=== PATIENT | female | born 1990 | race Two or more races ===

== ENCOUNTER → 2017-09-29 10:30 | Outpatient (CLI) | payer MEDICAID, SELFPAY ==
[2017-09-29 13:23] LABS: M R Staph aureus DNA By PCR Negative (Negative); Probe Check PASS; Specimen Processing Control PASS; Staph aureus DNA By PCR NEGATIVE (Negative)
== END ==
PROVIDERS: Visit Provider Ophthalmology
DX: H00.032 Abscess of right lower eyelid (principal)
CPT/HCPCS: 87070; 87075; 87077; 87186; 87205; 87640

== ENCOUNTER 2018-02-20 19:20 | Inpatient (IN) | payer MEDICAID, SELFPAY ==
[2018-02-20 17:48] VITALS: BMI 30.1
[2018-02-20] MEDS: Lactated Ringers 1,000 ML 50 ML IV ×3 (19:40→23:15)
[2018-02-20 19:51] LABS: Hematocrit 36.1 % (37-47); Hemoglobin 11.9 g/dl (12.0-15.0); Mean Corpuscular Hgb 31.7 pg (27.0-32.0); Mean Corpuscular Volume 96.3 fL (81-99); Mean Platelet Vol. 10.5 fl (6.2-12.0); Platelet Count 279 K/mm3 (150-450); RBC Distribution Width CV 13.6 % (11.6-14.6); RBC Distribution Width SD 47.1 fl (35.1-43.9); Red Blood Count 3.75 M/mm3 (4.2-5.4); Scan Indicated on CBC? Y/N NO; White Blood Count 8.7 K/mm3 (4.4-11.0)
--- NOTE | 2018-02-20 20:11 | PCM.HP.OB ---
- Problem List (1) Active labor at term Status: Acute History Date of Admission: 02/20/18 Final NAYE: 02/21/18 Gestational age: 39 Weeks and 6 Days History of this : This is a 28 year-old, G2, P1001, at 39 weeks gestational age who presented with contractions. She was 1.5 cm last week. Today she was 4 cm, and then changed to 5 cm dilated. Mio every 2-4 min. No VB, LOF. Good FM. Otherwise feeling well. Medical History: Medical History (Last Updated 02/20/18 @ 20:14 by Jocelin Cuellar DO) History of drug use Z87.898 Tobacco use Z72.0 Chronic hepatitis K73.9 Surgical History: Surgical History (Last Updated 02/20/18 @ 20:14 by Jocelin Cuellar DO) History of delivery Z98.891 Allergies No Known Allergies Allergy (Verified 02/20/18 17:50) Home Medications: Home Medications Vits96/Iron Fum/Folic [ Tablet] 1 tab PO DAILY 02/19/18 Smoking Status: Current every day smoker Alcohol: None Number of Fetus(es): 1 Heart Tracin/mod olivia/+accels/no decels TOCO Analysis: ctx's q 2-4 min History Past Pregnancies: Past Pregnancies Delivery Date Name GA/Weeks Outcome Route Weight Infant Gender Labor Length Anesthesia Delivery Location Provider FOB 41w2d for NRFHT PLTCS Labs: LFT's 71/76, HepC quant 199,600 GBS neg 1 hr GTT 90, sequential screen neg, Rh pos, syphilis NR, RI, HepB neg, HIV NR, GC/CT neg Expected Infant Delivery Method: Review of Systems Gynecological: Reports: - - +Ctx's. No vb, lof. Good FM Physical Exam General: No apparent distress HEENT: Atraumatic Lungs: - - No increased resp effort Abdomen: Soft, Non Tender, Gravid Extremities:: No edema Neurological: Neuro grossly intact VESSEL SCRAPPER: Normal external genitalia Estimated gestational size: Appropriate for gestational size Presentation: Cephalic Cervix Dilation (cm): 4 - when checked in the office Station: -2 Effacement (%): 80 Assessment/Plan All Active Problems Active labor at term (Acute) This is a 28 year-old, G2, P1001, at 39 weeks gestational age who presents in active labor. Hx of prior for NRFHT. Discussed risks of a TOLAC including uterine rupture, hemorrhage, maternal , compromise and . Patient understands the risks of a TOLAC and desires to proceed with TOLAC, consent has been signed. - GBS negative - H/o chronic hepatitis C: No internal monitors. Will check LFT's and refer to GI as an outpatient - H/o drug use: In remission. Has been going to AA meetings. Negative UDS's in . UDS on admission - Continue to monitor active labor. Pt getting epidural. Pt is aware of possible need for emergent
[2018-02-20 20:40] LABS: Amphetamine Urine VISTA NEGATIVE (<1000 ng/mL); Barbiturate Urine VISTA NEGATIVE (< 200 ng/mL); Benzodiazepine Urine VISTA NEGATIVE (< 200 ng/mL); Cocaine Urine VISTA NEGATIVE (< 300 ng/mL); Ecstacy Urine VISTA NEGATIVE (< 500 ng/mL); Methadone Urine VISTA NEGATIVE (< 300 ng/mL); PCP Urine VISTA NEGATIVE (< 25 ng/mL); THC Urine VISTA NEGATIVE (< 50 ng/mL); Vista UDS pH Range 6
[2018-02-20] MEDS: fentaNYL-bupivacaine (epidural) 100 ML BAG EPIDURAL (20:55)
[2018-02-21] MEDS: Oxytocin 30 units/NS 500 ml 30 UNITS/500 ML IV.SOLN 334 UNITS IV (03:40)
--- NOTE | 2018-02-21 04:07 | PCM.OB.VAG ---
- Problem List (1) Active labor at term Status: Acute (2) Hepatitis C Status: Acute (3) History of drug abuse in remission Status: Acute (4) History of section Status: Acute Vaginal Delivery Maternal Presentation: Active Labor Amniotic Membrane Rupture Type: Artificial Amniotic Fluid Description: Clear Final NAYE: 02/21/18 Gestational age: 40 Weeks and 0 Days Date of Procedure: 02/21/18 Pre-Operative Diagnosis: Active labor at 39 wks gestation, TOLAC, Hx of prior section Post-Operative Diagnosis: As above Surgery/ Procedure Performed: Spontaneous Vaginal Delivery Type of Anesthesia: Epidural Description of Procedure: Patient complete. AROM for clear fluid. Cvx 10/100/+2. Patient pushing and with pushing variable decelerations noted. Patient continued to make good progress with pushing. Midline episiotomy created. Head delivered OA without difficulty. Shoulders and body of delivered without force or delay. VFI placed on maternal abdomen. Cord clamped and cut by FOB after 60 sec delay. Cord gases and cord blood obtained. Placenta delivered intact with fundal massage, calcifications noted on placenta, 3V cord. Fundus firm and bleeding hemostatic. 2nd degree perineal laceration repaired in usual fashion with 3-0 Vicryl. 2 small hemostatic abrasions noted along left labia minora and midline near clitoral rhoades. EBL 250 cc. Presentation: Vertex Placental Delivery Description: Expressed Cord Vessel Description: 3 Vessels Cord Gases drawn per routine: ABG, VBG Cord Entanglement: None Drain: Liriano to straight drain Estimated Blood Loss: 250 Infant A gender: Female Episiotomy Description: Midline Laceration: 2nd degree Medications given after delivery: IV Pitocin Complications: None Baby B - Information Amniotic Membrane Rupture Type: Artificial Presentation: Vertex - Operative Information Cord Entanglement: None Cord Vessel Description: 3 Vessels Infant B gender: Female
[2018-02-21] MEDS: Oxytocin 30 units/NS 500 ml 30 UNITS/500 ML IV.SOLN 167 UNITS IV (04:10)
--- NOTE | 2018-02-21 04:14 | OP.PCM_ITS ---
- Problem List (1) Active labor at term Status: Acute (2) Hepatitis C Status: Acute (3) History of drug abuse in remission Status: Acute (4) History of section Status: Acute Vaginal Delivery Maternal Presentation: Active Labor Amniotic Membrane Rupture Type: Artificial Amniotic Fluid Description: Clear Final NAYE: 02/21/18 Gestational age: 40 Weeks and 0 Days Date of Procedure: 02/21/18 Pre-Operative Diagnosis: Active labor at 39 wks gestation, TOLAC, Hx of prior section Post-Operative Diagnosis: As above Surgery/ Procedure Performed: Spontaneous Vaginal Delivery Type of Anesthesia: Epidural Description of Procedure: Patient complete. AROM for clear fluid. Cvx 10/100/+2. Patient pushing and with pushing variable decelerations noted. Patient continued to make good progress with pushing. Midline episiotomy created. Head delivered OA without difficulty. Shoulders and body of delivered without force or delay. VFI placed on maternal abdomen. Cord clamped and cut by FOB after 60 sec delay. Cord gases and cord blood obtained. Placenta delivered intact with fundal massage, calcific ations noted on placenta, 3V cord. Fundus firm and bleeding hemostatic. 2nd degree perineal laceration repaired in usual fashion with 3-0 Vicryl. 2 small hemostatic abrasions noted along left labia minora and midline near clitoral rhoades. EBL 250 cc. Presentation: Vertex Placental Delivery Description: Expressed Cord Vessel Description: 3 Vessels Cord Gases drawn per routine: ABG, VBG Cord Entanglement: None Drain: Liriano to straight drain Estimated Blood Loss: 250 A gender: Female Episiotomy Description: Midline Laceration: 2nd degree Medications given after delivery: IV Pitocin Complications: None Baby B - Information Amniotic Membrane Rupture Type: Artificial Presentation: Vertex - Operative Information Cord Entanglement: None Cord Vessel Description: 3 Vessels Infant B gender: Female
[2018-02-21 08:30] VITALS: BP 108/54; PULSE 100; RESP 20; TEMP 37.2; O2SAT 95
[2018-02-21] MEDS: Senna/Docusate Sodium 1 Tablet PO (08:55)
[2018-02-21] MEDS: Prenatal Vits Tablet 1 TABLET PO (08:57)
[2018-02-21] MEDS: Ibuprofen 600 MG Tablet PO ×2 (08:58→16:23)
[2018-02-21] MEDS: Acetaminophen 500 MG Tablet 1000 MG PO ×2 (10:55→20:55)
[2018-02-21 12:00] VITALS: BP 99/53; PULSE 89; RESP 18; TEMP 37; O2SAT 96
--- NOTE | 2018-02-21 13:04 | NURSING ---
daryl area checked again and appears intact with no drainage. Pt states still sore but better since pain meds and tucks pads provided.
[2018-02-21 16:00] VITALS: BP 103/58; PULSE 93; RESP 14; TEMP 36.9; O2SAT 96
--- NOTE | 2018-02-21 17:53 | NURSING ---
pt given kpad for back pain
--- NOTE | 2018-02-21 18:58 | NURSING ---
baby sleeping. mom encouraged to undress baby to wake up for feeding
[2018-02-21 20:50] VITALS: BP 111/62; PULSE 87; RESP 16; TEMP 36.9; O2SAT 95
[2018-02-22 01:00] VITALS: BP 92/47; PULSE 77; RESP 16; TEMP 36.8; O2SAT 97
[2018-02-22 04:55] VITALS: BP 95/53; PULSE 97; RESP 16; TEMP 36.7; O2SAT 97
[2018-02-22] MEDS: Prenatal Vits Tablet 1 TABLET PO (08:25)
[2018-02-22] MEDS: Acetaminophen 500 MG Tablet 1000 MG PO (08:25)
[2018-02-22] MEDS: Senna/Docusate Sodium 1 Tablet PO (08:28)
--- NOTE | 2018-02-22 08:49 | PCM.PN.OB ---
Patient Problems: Active and Suspected Problems (Last Updated 02/20/18 @ 20:14 by Jocelin Cuellra DO) Active labor at term (Acute) Hepatitis C (Acute) History of drug abuse in remission (Acute) History of section (Acute) Subjective: Patient is doing well. Ambulating is spontaneously voiding without difficulty. +BM. Pain is well controlled. Tolerating regular diet without nausea or vomiting. Denies lightheadedness, dizziness, chest pain, shortness of breath, leg pain. Lochia is decreasing. She is breast-feeding without difficulty and without breast complaints. - Physical Exam General: Alert, Oriented x3 HEENT: Atraumatic Lungs: - - No increased resp effort Abdomen: Soft, Non-Distended, - - ATTP, FF@U-1 Extremities: No edema, No Calf Tenderness Skin: No rashes Neurological: Neuro grossly intact Psych/Mental Status: Normal Affect, Appropriate Vital Signs Temp Pulse Resp BP Pulse Ox 98.1 F 97 16 95/53 L 97 02/22/18 04:55 02/22/18 04:55 02/22/18 04:55 02/22/18 04:55 02/22/18 04:55 Oxygen Delivery Method Room Air Weight: 204 lb Body Mass Index (BMI) 30.1 Intake and Output for Last 24 Hours 02/20/18 02/21/18 02/22/18 23:59 23:59 23:59 Output Total 975 / 975 Balance -975 / -975 Medical Necessity - Tobacco Use Smoking Status: Current every day smoker Assessment/Plan All Active Problems (Last Updated 02/20/18 @ 20:14 by Jocelin Cuellar DO) Active labor at term (Acute) Hepatitis C (Acute) History of drug abuse in remission (Acute) History of section (Acute) Pt is day#1 from . - She feels well and ready to go home - AF, VSS - - PPBC: Plans for Mirena at 8 wks - Dispo: D/c home. Reviewed discharge instructions
--- NOTE | 2018-02-22 08:59 | PCM.DCVAG ---
Discharge Diet: No Restrictions Discharge Activity: Return to Normal Activity May resume sexual activity in: 4-6 weeks Weight Bearing Status: Weight bearing as tolerated Lifting Restrictions: None Call your doctor if you observe: Fever of 101 or Higher, Inability to urinate, Inability to have a bowel movement, Using more than one pad per hour, Shortness of breath, Dizziness, Chest pain, Increased palpitations (irregular heartbeat), Calf discomfort, Uncontrolled pain Instructions: How to Breastfeed, After a Vaginal Additional Instructions: If you experience any of the following, contact your healthcare provider. Bleeding that soaks a pad every hour for 2 hours Fever 100.4 or higher Unrelieved incision or abdominal pain Swelling, redness, discharge or bleeding from your incision or episiotomy site Your incision begins to separate Problems urinating (including inability to urinate or burning while urinating). Visual changes Severe headache Flu-like symptoms Pain or redness in one of both of your breasts Pain, warmth, tenderness or swelling in your legs, especially the calf area Frequent nausea and vomiting Symptoms of depression or anxiety If you experience any of the following, call 911 or go to the nearest Emergency Room. Chest pain Problems breathing Seizure activity Partial or complete paralysis of a body part, slurred speech, weakness or drooping of the face, or a sudden inability to walk or hold your balance Allergies/Adverse Reactions: Allergies No Known Allergies Allergy (Verified 02/20/18 17:50) Medications to take at Discharge Vits96/Iron Fum/Folic [ Tablet] 1 tab PO DAILY 02/19/18 Please Follow Up With: Jocelin Cuellar DO When: 4-6 weeks for visit. Call in 2 weeks for a sooner appointment if you would like to be seen. Primary Care Physician: Meg Farr [Primary Care Provider] - Test Results: Test results from this visit will be discussed in further detail at your follow-up appointment, if applicable.
--- NOTE | 2018-02-22 09:02 | DCINST_ITS ---
Discharge Diet: No Restrictions Discharge Activity: Return to Normal Activity May resume sexual activity in: 4-6 weeks Weight Bearing Status: Weight bearing as tolerated Lifting Restrictions: None Call your doctor if you observe: Fever of 101 or Higher, Inability to urinate, Inability to have a bowel movement, Using more than one pad per hour, Shortness of breath, Dizziness, Chest pain, Increased palpitations (irregular heartbeat), Calf discomfort, Uncontrolled pain Instructions: How to Breastfeed, After a Vaginal Additional Instructions: If you experience any of the following, contact your healthcare provider. * Bleeding that soaks a pad every hour for 2 hours * Fever 100.4 or higher * Unrelieved incision or abdominal pain * Swelling, redness, discharge or bleeding from your incision or episiotomy site * Your incision begins to separate * Problems urinating (including inability to urinate or burning while urinating). * Visual changes * Severe headache * Flu-like symptoms * Pain or redness in one of both of your breasts * Pain, warmth, tenderness or swelling in your legs, especially the calf area * Frequent nausea and vomiting * Symptoms of depression or anxiety If you experience any of the following, call 911 or go to the nearest Emergency Room. * Chest pain * Problems breathing * Seizure activity * Partial or complete paralysis of a body part, slurred speech, weakness or drooping of the face, or a sudden inability to walk or hold your balance Allergies/Adverse Reactions: Allergies No Known Allergies Allergy (Verified 02/20/18 17:50) Medications to take at Discharge Vits96/Iron Fum/Folic [ Tablet] 1 tab PO DAILY 02/19/18 Please Follow Up With: Jocelin Cuellar DO When: 4-6 weeks for visit. Call in 2 weeks for a sooner appointment if you would like to be seen. Primary Care Physician: Meg Farr [Primary Care Provider] - Test Results: Test results from this visit will be discussed in further detail at your follow- up appointment, if applicable.
[2018-02-22 10:00] VITALS: BP 109/64; PULSE 88; RESP 16; TEMP 36.6; O2SAT 97
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
[2018-02-22 16:50] VITALS: BP 108/62; PULSE 83; RESP 14; TEMP 36.6; O2SAT 96
--- NOTE | 2018-03-01 10:01 | CASEMGMT ---
Social Work Labor and Delivery Early Head Start referral made, faxed to [facility], to confirmed fax at [phone]. No other services requested or indicated. -BRUCE Arauz, DIETIST
--- OUTSIDE RECORDS SUMMARY | 2018-04-18 03:17 | XMS RPT_ITS ---
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 grossly non-focal PELVIS: External genitalia normal without lesions. Perineal body intact. No vaginal or cervical lesions. Cervix closed. Uterus 8 week size. No adnexal masses or tenderness. Clinical Pelvimetry: Pelvimetry clinically assessed as adequate Limited OB ultrasound exam: single intrauterine and positive cardiac activity ASSESSMENT: 27 year old at 7.6 wks gestational age PLAN: 1) Patient oriented to practice. Discussed nutrition, folic acid supplementation, dietary guidelines, exercise, smoking, alcohol, caffeine, and drug use. Discussed routine OB labs including STD/HIV. Discussed aneuploidy screening options including serum screening and nuchal translucency. 2) History of cesearan section, patient counseled on trial of labor versus repeat cesearan section, patient plans TOLAC 3) HEP C +, quant and lft ordered Follow up in 4 weeks or sooner prn. Spenser Corado MD SBIRT Brayan Crespo was given the 4's screening tool. Brayan answered as follows: OB Opioid Screening - Last Recorded (since 10/14/2016) Did any of your parents have a problem with alcohol or other drug use? No Does your partner have a problem with alcohol or other drug use? (!) Yes (partner overdosed on heroin went to rehab and has sponser ) In the past, have you had difficulties in your life because of alcohol or other drugs, including prescription medications? 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 No Are you taking medication for pain during the either prescribed or not? No Based on the screen and further questions, she is considered at moderate risk due to: High use in the past including recent treatment. sober x 2 years Patient offered plan rescreen early third trimester. In discussing this issue my medical advice was that Brayan Crespo abstain and continue with outpatient treatment. Her readiness to change(0 lowest - 10 highest) was 10. We discusssed her motivation to change based upon this response. Patient agreed that she would: abstain and participate in a 12 step program (continue participation) In total, 10 minutes of personal time was spent administering and interpreting the screen, plus performing a brief intervention. Patient is very Motivated to stay sober- has sponsor, attends meetings. Spenser Corado MD ALLERGIES ALLERGIES DATE TYPE / CODE NAME / CODE REACTION SEVERITY SOURCE 02/20/2018 Drug No Known Unknown [facility] Allergy/416 Allergies/F28316 [facility] 868147(SNOM 0388(RXNORM) Repository ED CT) 07/11/2017 DRUG/713463 DEXTROMETHORPHAN UNKNOWN [facility] 003(SNOMED -GUAIFENESIN [place]) Repository 04/17/2016 Drug Penicillins/F001 Unknown Unknown [facility] Allergy/416 162944(RXNORM) Hospital 594127(SNOM Repository ED CT) Drug NO KNOWN [facility] Class/25308 ALLERGIES [place] 1003(SNOMED Repository CT) ENCOUNTERS ENCOUNTERS ADMIT/DISCHARGE ACCOUNT ADMITTING ENCOUNTER LOCATION SOURCE NUMBER CLASS 03/12/2018/03/12/20 [id number] Ambulatory [address] Repository 03/06/2018/03/07/20 [id number] Ambulatory [address] Repository 02/21/2018 [id number] Chau Cuellar Ambulatory [facility] ing:WP Repository 02/20/2018/02/23/20 [id number] Chau Cuellar Inpatient [place] ing:WPRoom: Repository [id number]: 1 02/20/2018/02/22/20 [id number] Ambulatory [facility] [place] Repository 02/19/2018/02/21/20 [id number] Amb[facility] [place] Repository 02/15/2018/02/19/20 [id number] Amb[facility] [place] Repository 02/08/2018/02/12/20 [id number] Ambulatory [facility] [place] Repository 02/01/2018/02/05/20 [id number] Ambulatory [facility] [place] Repository 01/25/2018/01/26/20 [id number] Amb[facility] [place] Repository 01/25/2018/01/29/20 [id number] Ambulatory [facility] [place] Repository 01/18/2018/01/22/20 [id number] Amb[facility] [place] Repository 01/04/2018/01/08/20 [id number] Amb[facility] [place] Repository 12/21/2017/12/25/19 [id number] Amb[facility] [place] Repository 12/12/2017/12/14/19 [id number] Amb[facility] [place] Repository 11/23/2017/11/24/19 [id number] Amb[facility] [place] Repository 11/23/2017/11/28/19 [id number] Ambulatory [facility] [place] Repository 10/26/2017/10/30/19 [id number] Amb[facility] [place] Repository 09/29/2017 [id number] Ambulatory [facility] ing:LABSPEC Repository 09/27/2017/09/29/19 [id number] Ambulatory [facility] [place] Repository 09/27/2017/10/02/19 [id number] Ambulatory [facility] [place] Repository 09/25/2017/09/28/19 [id number] Ambulatory [facility] [place] Repository 09/12/2017/09/13/19 [id number] Ambulatory [facility] [place] Repository 09/12/2017/09/15/19 [id number] Amb[facility] [place] Repository 08/21/2017/08/23/19 [id number] Ambulatory [address] Repository 08/08/2017/08/09/19 [id number] Ambulatory [address] Repository 08/08/2017 [id number] Ambulatory [facility] Repository 08/08/2017 [id number] Ambulatory [facility] Repository 07/11/2017/07/17/19 [id number] Ambulatory [address] Repository PAYERS PAYERS ENCOUNTER GUARANTOR PAYER SUBSCRIBER SOURCE 02/21/2018 BRAYAN L Primary BRAYAN [place] [id number] [id number] [address]Qky: Number: Repository [id number] (HP) Date:[id number] [address] [address]XZ: 02/21/2018 Secondary NOT GIVENUNK [place] Insurance:SELF PAY [facility] Number: Effective Repository Date:2018-02-15 02/20/2018 BRAYAN L Primary BRAYAN [place] [id number] Insurance:[facility]: [facility] [id number] [address]Wnf: Number: Repository [id number] (HP) Date:[id number] [address] [address]LP: 02/20/2018 Secondary NOT GIVENUNK [place] Insurance:SELF PAY [facility] Number: Effective Repository Date:2018-02-20 09/29/2017 Brayan Primary Brayan [place] [id number] Insurance:[facility]: [facility] [id number] [facility] [address]Uuc: Number: Repository [id number] (HP) Date:[id number] [address] [address]WR: 09/29/2017 Secondary NOT GIVENUNK [place] Insurance:[facility]LF [facility]Y [facility] Number: Effective Repository Date:2017-09-29
== END 2018-02-22 16:55 | disposition home or self-care (01) | DRG 560 ==
LOC: WPOUT 19:24
PROVIDERS: Admitting Provider Obstetrics & Gynecology; Referring Provider Obstetrics & Gynecology; Visit Provider Obstetrics & Gynecology
PROC: 10E0XZZ Delivery of Products of Conception, External Approach (ICD-10-PCS; CPT 59514; principal; 2018-02-21 07:15)
DX: O70.1 Second degree perineal laceration during delivery (principal); O76 Abnormality in fetal heart rate and rhythm complicating labor and delivery; O34.219 Maternal care for unspecified type scar from previous cesarean delivery; O98.42 Viral hepatitis complicating childbirth; O99.334 Smoking (tobacco) complicating childbirth; F17.200 Nicotine dependence, unspecified, uncomplicated; B18.2 Chronic viral hepatitis C; Z37.0 Single live birth; Z3A.39 39 weeks gestation of pregnancy; Z87.898 Personal history of other specified conditions
CPT/HCPCS: 59050; 80307; 85027; 86850; 86900; 99218; J7120; G0378

== ENCOUNTER 2018-05-08 15:32 | Emergency (ER) | payer MEDICAID, SELFPAY ==
[2018-05-08 15:33] VITALS: BP 134/75; PULSE 127; RESP 18; TEMP 39.4; O2SAT 91; BMI 26.9
[2018-05-08 15:36] VITALS: BP 134/75; PULSE 135; RESP 18; TEMP 39.4; O2SAT 100
--- NOTE | 2018-05-08 16:29 | RAD_ITS ---
STUDY: X-RAY CHEST REASON FOR EXAM: Female, 28 years old. Fever TECHNIQUE: PA and lateral views of the chest. COMPARISON: None. FINDINGS: prosthetic makeup designer leads are present. There is a prominent bronchopulmonary marking pattern of the left lingula. There is no demonstrated pleural abnormality. Normal size heart. Normal mediastinum and rafael. Normal visualized pulmonary arteries. Normal visualized aortic arch and descending thoracic aorta. Normal visualized thoracic spine. Normal visualized ribs, clavicles, and shoulders. There is no demonstrated abnormality of the visualized soft tissue structures of the upper abdomen. RAD/Chest PA and Lateral IMPRESSION: Prominent bronchopulmonary marking pattern of the left lingula suggestive of pneumonitis versus early infiltrate. Electronically Signed: Daniel Husain MD at 17:35 EST , Service support ,
--- NOTE | 2018-05-08 16:30 | ED.VISSUMM ---
- ER Visit Summary Date of Service: 05/08/18 Chief Complaint: Fever History of Present Illness: The patient is a 28 F who presents for 6 days of respiratory symptoms, now with fever. Patient states 6 days ago she began having a itching in her throat. This progressed to a cough, congestion and sore throat. She was seen by urgent care 3 days ago and states they did a strep test and a chest x-ray which were unremarkable. This morning the patient was feeling somewhat better, but then at lunchtime she abruptly developed body aches and chills. She took her temperature at home which was 102.4. She still is having a significant cough with some posttussive emesis. Patient has a 2-month-old infant whom she breast-feeds. Patient is hepatitis C positive. She does smoke tobacco. Physical Examination: Vital signs: Febrile at 102.9, tachycardic at 116, normotensive, no hypoxia on room air General: well nourished, well developed, in no distress Skin: warm, dry, flushed, no rash, no pallor, no petechiae or purpura, no vesicles HEENT: normocephalic and atraumatic; PERRL, EOMI, moist mucous membranes, oropharynx is clear without any tonsillar swelling or exudate, uvula is midline, no tender lymphadenopathy, no meningismus, neck is supple with full active range of motion, TMs are clear and pearly with good light reflex, ear canals are not mildly erythematous, patient has frequent moist cough Cardiovascular: Tachycardic rate and rhythm without murmurs, no peripheral edema, 2+ pulses all distal extremities Respiratory: No increased work of breathing, lungs are diffusely rhonchorous, no wheezing Abdominal: Abdomen is soft, nontender with normoactive bowel sounds, no guarding or rebound, no masses MSK: Moves all extremities, no deformities, normal strength Neuro: Awake and alert, oriented ?4. No facial droop, sensation and motor function intact and symmetric Test Results: Clinical Impression(s) from Imaging Studies Chest X-Ray 05/08/18 16:29 IMPRESSION: Prominent bronchopulmonary marking pattern of the left lingula suggestive of pneumonitis versus early infiltrate. Electronically Signed: Daniel Husain MD at 17:35 EST , Service support , Medications Given Discontinued Medications Acetaminophen (Tylenol) 1,000 mg PO X1 ONE Stop: 05/08/18 16:30 Last Admin: 05/08/18 16:55 Dose: 1,000 mg Albuterol/Ipratropium (Duoneb) 3 ml INHALATION X1 ONE Stop: 05/08/18 16:30 Last Admin: 05/08/18 16:56 Dose: 3 ml Emergency Department Course and Treatment: Patient was given Tylenol for her fever and a DuoNeb for her breathing. Chest x-ray performed to make sure patient has not developed a secondary pneumonia. Symptoms are consistent with influenza, with questionable time of onset, as she has had a period where she was feeling better this week but then had the abrupt onset of fever and myalgias at lunchtime today. Patient was reevaluated after receiving her breathing treatment. She stated she was feeling much better after the breathing treatment and the dose of Tylenol. Lung exam now shows clear and equal bilaterally. Patient's symptoms are consistent with clinical diagnosis of influenza, thus therapy initiated without waiting for positive rapid flu. Discussed with patient that even though she may be outside the 48-hour period window for initiating Tamiflu, she would be written a prescription since she has a 2-month-old infant at home and she also works with a gentleman with stage IV cancer. Patient was given a prescription for an albuterol inhaler. She has Tylenol at home that she will use for fever and body aches. Chest XR was concerning for possible early lingular infiltrate vs. pneumonitis. Patient given azithromycin for treatment for concern for early PNA. Patient was reevaluated again, and stated that she feels better and is ready for discharge home. O2 sat 94% on room air. Patient is still tachycardic, but she is also still febrile and is well-appearing and able to speak in full sentences; also she feels well enough for outpatient trial of therapy. Patient was discharged home with a work note and the prescriptions as above. She will return if any worsening of her condition. Treatment Plan: [] Disposition: [] Impression: Flulike illness, left lingular PNA This note was generated with [employer] software. It may contain incorrect words, spelling, and punctuation that were not noted in review of the chart prior to signing ED Disposition - Plan for ED Patient: Disposition: Home or Assisted Living Instructions: ED Flu Prescriptions: Albuterol Inhaler [Ventolin Hfa] 2 puff INHALATION Q4H PRN PRN #1 inhaler PRN Reason: Wheezing Azithromycin [Zithromax Z-Joby] 250 mg PO UD #1 box Oseltamivir Phosphate [Tamiflu] 75 mg PO BID #10 cap Referrals: [facility]eg Salinas [Primary Care Provider] - 3-5 Days if not improving Additional Instructions: Use tylenol as needed for fever and pain. Do not take more than 3000mg in one day. Use the albuterol inhaler as needed for cough and shortness of breath. If you have any worsening of your condition or any new concerning symptoms, please return immediately to the emergency department for another evaluation.
--- NOTE | 2018-05-08 16:39 | ED.RN ---
discussion with about sepsis at 1615. no further orders at this time.
[2018-05-08] MEDS: Acetaminophen 500 MG Tablet 1000 MG PO (16:55)
[2018-05-08] MEDS: Ipratropium/Albuterol Sulfate 3 ML AMPUL.NEB INHALATION (16:56)
--- NOTE | 2018-05-08 17:16 | ED.DEP ---
ED Disposition - Plan for ED Patient: Disposition: Home or Assisted Living Instructions: ED Flu Prescriptions: Albuterol Inhaler [Ventolin Hfa] 2 puff INHALATION Q4H PRN PRN #1 inhaler PRN Reason: Wheezing Oseltamivir Phosphate [Tamiflu] 75 mg PO BID #10 cap Referrals: [facility]eg Salinas [Primary Care Provider] - 3-5 Days if not improving Additional Instructions: Use tylenol as needed for fever and pain. Do not take more than 3000mg in one day. Use the albuterol inhaler as needed for cough and shortness of breath. If you have any worsening of your condition or any new concerning symptoms, please return immediately to the emergency department for another evaluation.
[2018-05-08 17:23] VITALS: BP 111/85; PULSE 121; RESP 14; TEMP 39.3; O2SAT 98
[2018-05-08 18:12] VITALS: BP 120/66; PULSE 123; RESP 16; O2SAT 96
--- NOTE | 2018-05-08 18:23 | ED.DEP ---
ED Disposition - Plan for ED Patient: Disposition: Home or Assisted Living Instructions: ED Flu Prescriptions: Albuterol Inhaler [Ventolin Hfa] 2 puff INHALATION Q4H PRN PRN #1 inhaler PRN Reason: Wheezing Azithromycin [Zithromax Z-Joby] 250 mg PO UD #1 box Oseltamivir Phosphate [Tamiflu] 75 mg PO BID #10 cap Referrals: [facility]eg Salinas [Primary Care Provider] - 3-5 Days if not improving Additional Instructions: Use tylenol as needed for fever and pain. Do not take more than 3000mg in one day. Use the albuterol inhaler as needed for cough and shortness of breath. If you have any worsening of your condition or any new concerning symptoms, please return immediately to the emergency department for another evaluation.
== END 2018-05-08 18:26 | disposition home or self-care (01) ==
LOC: ED 17:34
PROVIDERS: Emergency Provider Emergency Medicine
DX: J11.1 Influenza due to unidentified influenza virus with other respiratory manifestations (principal); J18.9 Pneumonia, unspecified organism; Z72.0 Tobacco use
CPT/HCPCS: 71046; 87804; 99282; A4216

== ENCOUNTER 2020-02-05 05:44 | Day surgery (SDC) | payer MEDICAID, SELFPAY ==
[2019-11-05 13:32] VITALS: BMI 26.9
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
[2020-01-28 11:18] LABS: Hematocrit 41.3 % (37-47); Hemoglobin 13.5 g/dL (12.0-15.0); Mean Corp Hgb Conc 32.7 g/dL (32-36); Mean Corpuscular Volume 97.9 fL (81-99); Mean Platelet Vol. 9.8 fl (6.2-12.0); Platelet Count 280 K/mm3 (150-450); RBC Distribution Width CV 11.6 % (11.6-14.6); Red Blood Count 4.22 M/mm3 (4.2-5.4); White Blood Count 6.4 K/mm3 (4.4-11.0)
[2020-01-28 11:49] LABS: AST(SGOT) 34 U/L (15-37); Alanine Aminotransfer ALT/SGPT 67 U/L (13-56); Alkaline Phosphatase 67 U/L (45-117); Bilirubin, Direct 0.23 mg/dL (0.00-0.30); Globulin 3.9 g/dL (2.2-4.2); Protein, Total 7.9 g/dL (6.4-8.2)
[2020-02-05 06:20] LABS: Internal QC Validated? YES +Cl - CLEAR BKGD; Pregnancy, Urine Negative Negative
[2020-02-05 06:32] VITALS: BP 110/62; PULSE 69; RESP 14; TEMP 36.5; O2SAT 97; BMI 27.5
[2020-02-05] MEDS: Lactated Ringers 1,000 ML 100 ML IV (06:36)
--- NOTE | 2020-02-05 07:30 | FALS_PTH ---
PATIENT: BRAYAN CRESPO LOC: [facility] U#:[id number] AGE/SX: 30/F ROOM: RE02/05/[address]: Dr. Jocelin Cuellar DO : 1990 BED: DIS: 02/05/2020 SPEC #: [id number] RECD: 02/05/20 09:47 STATUS: MICHELLE ROSSANA #: [id number] NORBERTO: 02/05/20 07:[address]: Jocelin Cuellar DEPT: SURGICAL PATHOLOGY RECD BY: Tonia Lambert ENTERED: 02/05/20 10:38 SP TYPE: FALL TUBES OTHR DR: Dr. Oj Charles MD [facility] Tissues: Fallopian tube Procedures: Surgery Specimen Level II HEADER OPERATION: Laparoscopic salpingectomy, IUD removal, hysteroscopy PRE-OP DIAGNOSIS: Sterilization TISSUE SUBMITTED: Bilateral fallopian tubes MICROSCOPIC DIAGNOSIS Bilateral fallopian tubes, salpingectomy: Bilateral fallopian tubes including fimbrial ends, no pathologic diagnosis. BRANDEN:nilda 02/06/20 MICROSCOPIC DESCRIPTION Slides are reviewed. GROSS DESCRIPTION Received in fixative is one container labeled with the patient's name and designated bilateral fallopian tubes. The specimen consists of bilateral fallopian tubes including fimbrial ends measuring 7 cm in length and 0.6 cm in diameter and 8.5 cm in length and 0.5 cm in diameter. The fallopian tubes are not identified as right or left. Sections reveal unremarkable cut surfaces. Instructional Resource Teacher sections are submitted in two cassettes with each cassette containing one fallopian tube. / BRANDEN:nilda 02/05/20 TC:4 CPT: 75652 x2
[2020-02-05] MEDS: Bupivacaine Mpf 0.5% 30 ML VIAL (08:23)
--- NOTE | 2020-02-05 08:41 | PCM.DC ---
- Discharge Diagnoses Current Active Problems: Current Active and Chronic Problems (Last Updated 02/20/18 @ 20:[address] Jocelin Cuellar, DO) Sterilization (Acute) Encounter for IUD removal (Acute) You will use the following diet at home:: No restrictions, Regular Your food should be the consistency of: Regular Discharge Activity: May Drive - Once you feel strong enough to slam on a car brake and turn a steering wheel sharply, May not drive while taking narcotic pain medications. Return to work on:: 02/12/20 - Recommend 1 week off from work May shower in (days): 1 May resume sexual activity in: 1 week Ice area for (Minutes): 15 Weight Bearing Status: Weight bearing as tolerated Lifting Restrictions: Nothing greater than 5-10 lbs for 2 weeks Call your doctor if your incision/area has: Sudden Increased Bleeding, Increased Pain/ Swelling, Increased Redness, Foul Smelling Discharge, Swelling at the incision site Call your doctor if you observe: Fever of 101 or Higher, Inability to urinate, Inability to have a bowel movement, Using more than one pad per hour, Shortness of breath, Dizziness, Fainting spells, Swelling in the ankles, Chest pain, Increased palpitations (irregular heartbeat), Calf discomfort, Uncontrolled pain Suture Line Care: Avoid Pulling/Pushing, Avoid Pinching/Bending Cleanse incision/area with: Soap & Water Allergies/Adverse Reactions: Allergies fentanyl Allergy (Verified 01/27/20 09:01) PT UNSURE OF REACTION Medications to take at Discharge Ibuprofen [Motrin] 600 mg PO Q6H PRN PRN #30 tab 02/05/20 Oxycodone HCl/Acetaminophen [Percocet 5/325] 1 tablet PO Q6H PRN PRN 7 Days #5 tablet 02/05/20 The following prescriptions were given: Ibuprofen [Motrin] 600 mg PO Q6H PRN PRN #30 tab PRN Reason: Pain Score 4-10 Transmission Status: Pending to [facility] Oxycodone HCl/Acetaminophen [Percocet 5/325] 1 tablet PO Q6H PRN PRN 7 Days #5 tablet PRN Reason: Pain Score 6-10 Transmission Status: Sent to [facility] Primary Care Physician: Meg Chambers [Primary Care Provider] - Test Results: Test results from this visit will be discussed in further detail at your follow-up appointment, if applicable. Please Follow Up With: Jocelin Cuellar, DO When: 1 week
--- NOTE | 2020-02-05 08:43 | PCM.OPRPT ---
Problem List (1) Sterilization Status: Acute (2) Encounter for IUD removal Status: Acute Report of Operation Date of Procedure: 02/05/20 Pre-Operative Diagnosis: Desires permanent sterilization, displaced and embedded IUD Post-Operative Diagnosis: As above Surgery/Procedure Performed:: Laparoscopic bilateral salpingectomy, hysteroscopic removal of IUD Description of Surgical Findings:: Normal-appearing uterus, bilateral tubes, bilateral ovaries. Normal-appearing pelvis. IUD arm was possibly seen protruding to, but not through, the uterine serosa at the anterior fundus. The IUD was noted to be embedded anteriorly within the lower uterine segment on hysteroscopy. special needs bus driver: Lamont Reyna Type of Anesthesia:: General Special Medications: None Specimen's removed: Bilateral fallopian tubes Drains: None Estimated Blood Loss (mL): < 10 cc Fluids Replaced: 1L Description of Procedure: Start time: 0756 Stop time: 08 The clinical assistant professor Estelle Reyna was present for the entire procedure. She assisted with prepping, draping, and assisting with the bilateral salpingectomy, and closed the port sites. Patient was taken to the operating room where anesthesia was found to be adequate. She was prepped and draped in the dorsal lithotomy position using yellowfin stirrups. From below a weighted speculum was placed into the vagina and the anterior lip of the cervix was grasped with a single-tooth tenaculum. A Anastasia cannula was placed for uterine manipulation. Gloves were changed and attention was turned to the abdominal portion of the procedure. Above local was infiltrated at all port sites. An incision was made infraumbilically to accommodate a 5 mm port, which was inserted under direct visualization using the laparoscope. Once confirmed intraperitoneal, CO2 insufflation was initiated. A right lateral 5 mm port was placed. Then a left lateral 5 mm port was placed. Visualization of the pelvis was achieved and pictures were taken. The right fallopian tube was followed out to the fimbriated end. Using the LigaSure device the mesosalpinx was serially clamped, cauterized, and transected. The entire right fallopian tube was removed and sent to pathology for review. The same was performed on the left side to remove the entire left fallopian tube, which was also sent to pathology for review. Hemostasis was noted. All ports were removed and the abdomen was exsufflated. The incisions were closed with Monocryl and Dermabond. Attention was then turned below. The uterine manipulator was removed. The cervix was serially dilated to accommodate the operative hysteroscope. The hysteroscope was advanced into the lower uterine segment. Hysteroscope was unable to be advanced further due to the IUD being present. The IUD strings were visualized. Using the forcep grasper, the IUD strings were grasped. With very gentle traction the IUD was easily removed without any force or delay on first attempt. The IUD was noted to be intact. Hysteroscopy was then performed noting a normal-appearing uterine cavity. Hysteroscope was then removed. Bleeding was hemostatic. All instruments were removed from the vagina. Vaginal sweep was performed. Instrument and sponge counts were correct. The patient was taken to recovery room in stable condition. Grafts/Implants Used: None - Complications None - Admit VTE Documentation VTE Present on Admission: No VTE Mechan Device Prophylaxis: SCD's VTE Pharm Prophylaxis ordered?: No
[2020-02-05 08:50] VITALS: BP 110/62; BP 114/98; PULSE 89; RESP 16; TEMP 36.6; O2SAT 100
[2020-02-05 08:57] VITALS: BP 110/62; BP 130/83; PULSE 83; RESP 16; O2SAT 97
--- NOTE | 2020-02-05 08:59 | SUR.PHASEI ---
DR MO NOTIFIED OF PATIENT'S C/O ABDOMINAL PAIN, 11/02. PATIENT HAS ALLERGY TO FENTANYL LISTED. DR MO STATES THE ALLERGY RESPONSE TO FENTANYL IS ITCHING. DR MO STATES THAT GIVING FENTANYL WILL BE SAFE. DR MO STATES TO START WITH MORPHINE PREVIOUSLY ORDERED AND THEN ADVANCE TO FENTANYL IF NEEDED.
[2020-02-05 09:05] VITALS: BP 110/62; BP 117/96; PULSE 68; RESP 16; O2SAT 97
[2020-02-05 09:06] VITALS: BP 110/62; BP 113/78; PULSE 68; RESP 16; TEMP 36.4; O2SAT 94
[2020-02-05 09:55] VITALS: BP 100/70; BP 110/62; PULSE 63; RESP 20; TEMP 36.7; O2SAT 98
== END 2020-02-05 10:20 | disposition home or self-care (01) ==
LOC: SDC 05:45 → AC 05:45
PROVIDERS: Referring Provider Obstetrics & Gynecology; Visit Provider Obstetrics & Gynecology
PROC: (CPT 58661; principal; 2020-02-05 07:15)
DX: Z30.2 Encounter for sterilization (principal); T83.32XA Displacement of intrauterine contraceptive device, initial encounter; K73.2 Chronic active hepatitis, not elsewhere classified; F43.10 Post-traumatic stress disorder, unspecified; F17.210 Nicotine dependence, cigarettes, uncomplicated; Z20.828 Contact with and (suspected) exposure to other viral communicable diseases
CPT/HCPCS: 00840; 58562; 58661; 36415; 80076; 81025; 85027; 86850; 86900; 86901; 87426; 88302; C9803; J7120; J2405

== ENCOUNTER → 2020-09-07 10:15 | Outpatient (CLI) | payer MEDICAID, SELFPAY ==
[2020-09-07 11:05] LABS: Absolute Lymphocyte Count 1.81 X10^3/uL (0.83-4.51); Absolute Neutrophil Count 2.6 X10^3/uL (2.0-7.7); Basophil# 0.03 X10^3/uL; Basophil% 0.6 % (0-1); Eosinophil# 0.12 X10^3/uL; Eosinophils% 2.4 % (0-5); Hematocrit 43.4 % (37-47); Hemoglobin 14.5 g/dL (12.0-15.0); Lymphocyte # 1.81 X10^3/ul (0.83-4.51); Lymphocyte % 36.9 % (19-41); Mean Corp Hgb Conc 33.4 g/dL (32-36); Mean Corpuscular Hgb 32.4 pg (27.0-32.0); Mean Corpuscular Volume 96.9 fL (81-99); Mean Platelet Vol. 10.4 fl (6.2-12.0); Monocyte# 0.32 X10^3/uL; Monocyte% 6.5 % (0-10); NRBC Flagged by Analyzer 0 % (0-5); Neutrophil # 2.61 X10^3/uL (2.7-7.7); Neutrophil % 53.4 % (47-70); Platelet Count 309 K/mm3 (150-450); RBC Distribution Width CV 11.8 % (11.6-14.6); Red Blood Count 4.48 M/mm3 (4.2-5.4); White Blood Count 4.9 K/mm3 (4.4-11.0)
[2020-09-07 11:19] LABS: Prothrombin Time (Protime)PT. 12.7 SECONDS (11.7-14.9)
[2020-09-07 11:42] LABS: ALB/GLOB Ratio 1.2 RATIO (0.9-2.4); AST(SGOT) 33 U/L (15-37); Alanine Aminotransfer ALT/SGPT 61 U/L (13-56); Albumin, Serum 4.3 g/dL (3.2-5.0); Alkaline Phosphatase 57 U/L (45-117); Anion Gap 5 (5-15); BUN 6 mg/dL (7-18); BUN/Creat Ratio 7.2 RATIO (10-20); Calcium,Total 8.9 mg/dL (8.5-10.1); Chloride 103 mmol/L (98-107); Cholesterol 115 mg/dL (200); Creatinine, Serum 0.83 mg/dL (0.55-1.02); EST Glomerular Filtration Rate 86 mL/min (>60); Est Glom Filt Rate - Afr Amer 104 mL/min (>60); Globulin 3.7 g/dL (2.2-4.2); Glucose 68 mg/dL (74-106); High Density Lipoprotein 58 mg/dL; Potassium 3.7 mmol/L (3.5-5.1); Sodium Level 138 mmol/L (136-145); T4 Free Direct 1.45 ng/dL (0.76-1.46); Thyroid Stim Hormone (TSH) 0.54 uIU/mL (0.358-3.74); Triglycerides 69 mg/dL; Very Low Density Lipoprotein 14 mg/dL (5-40)
[2020-09-07 12:09] LABS: HIV - WCH Non-Reactive (Nonreactive); Hepatitis B Surface Antibody Non-Reactive; Syphilis Antibodies Non-reactive
[2020-09-10 20:08] LABS: Comment 1a (.); HCV Quant. RNA PCR 401000 IU/mL (.); Hepatitis B Core Ab Total Negative (Negative)
[2020-09-10 21:18] LABS: HCV log 10 5.603 (.); Hepatitis A AB, Total Negative (Negative)
== END ==
DX: B18.2 Chronic viral hepatitis C (principal); F41.9 Anxiety disorder, unspecified
CPT/HCPCS: 36415; 80053; 80061; 84439; 84443; 85025; 85610; 86703; 86704; 86706; 86708; 86780; 87522; 87902

== ENCOUNTER → 2020-09-09 09:54 | Outpatient (CLI) | payer MEDICAID, SELFPAY ==
--- NOTE | 2020-09-09 09:57 | US_ITS ---
STUDY: ABDOMINAL ULTRASOUND - RIGHT UPPER QUADRANT REASON FOR VISIT: Female, 30 years old CHRONIC VIRAL HEP C TECHNIQUE: Ultrasound evaluation of the right upper quadrant was performed with real-time and static veloz-scale imaging. TECHNICAL QUALITY: Adequate. COMPARISON: None. FINDINGS: Liver: The liver measures 13 cm. There is a mild degree of increased echogenicity consistent with mild degree of fatty infiltration. The bile ducts are within normal limits. There is hepatic color flow. The direction of portal flow is hepatopetal. There is no demonstrated mass lesion. Gallbladder: Normal distended gallbladder. The gallbladder wall measures 2.6 mm. There is a negative sonographic Correa''s sign. There is no pericholecystic fluid. There are no gallstones. Common Bile Duct (C.B.D.): The common bile duct measures 2.7 mm. Pancreas: Normal size of the head, body and tail of the pancreas. There is normal echogenicity of the pancreas. There is no demonstrated pancreatic mass or cyst. Right Kidney: Normal size of the right kidney. The right kidney measures 10.5 cm x 5.2 cm x 4.1 cm. Normal renal cortex. The right cortex measures 2.2 cm. There is no demonstrated renal mass or cyst. There is no right hydronephrosis. US/Abdomen Limited IMPRESSION: Mild degree of fatty infiltration of the liver. Electronically Signed: Ras Melvin MD at 10:52 EDT , Service support ,
== END ==
PROVIDERS: Referring Provider Nurse Practitioner Adult Health; Visit Provider Nurse Practitioner Adult Health
DX: B18.2 Chronic viral hepatitis C (principal)
CPT/HCPCS: 76705

== ENCOUNTER → 2020-09-28 11:50 | Outpatient (CLI) | payer MEDICAID, SELFPAY ==
[2020-09-28 14:28] LABS: Amphetamine Urine VISTA NEGATIVE (<1000 ng/mL); Barbiturate Urine VISTA NEGATIVE (< 200 ng/mL); Benzodiazepine Urine VISTA NEGATIVE (< 200 ng/mL); Cocaine Urine VISTA NEGATIVE (< 300 ng/mL); Ecstacy Urine VISTA NEGATIVE (< 500 ng/mL); Methadone Urine VISTA NEGATIVE (< 300 ng/mL); PCP Urine VISTA NEGATIVE (< 25 ng/mL); THC Urine VISTA NEGATIVE (< 50 ng/mL); Vista UDS pH Range 6
== END ==
PROVIDERS: Visit Provider Internal Medicine Infectious Disease
DX: B18.2 Chronic viral hepatitis C (principal)
CPT/HCPCS: 80307

== ENCOUNTER → 2021-01-07 08:41 | Outpatient (CLI) | payer MEDICAID, SELFPAY ==
[2021-01-08 16:08] LABS: HCV Quant. RNA PCR HCV Not Detected IU/mL (.)
== END ==
PROVIDERS: Visit Provider Internal Medicine Infectious Disease
DX: B18.2 Chronic viral hepatitis C (principal)
CPT/HCPCS: 36415; 87522

== ENCOUNTER 2021-01-23 12:14 | Emergency (ER) | payer MEDICAID, SELFPAY ==
[2021-01-23 12:15] VITALS: BP 152/102; PULSE 103; RESP 16; TEMP 36.4; O2SAT 98; BMI 27.3
--- NOTE | 2021-01-23 12:29 | ED.VIS.DENTA ---
HPI History of Present Illness Chief Complaint: Dental Informant: patient Narrative Narrative: 31-year-old female states that about 2 weeks ago she had [facility]. She states that now she has developed swelling and pain over the left maxillary sinus region and tenderness of the same tooth. The patient states that she is going to try to call them later open on Sunday. No reported fevers. She has been able to eat PFSH PFS Medical History Chronic hepatitis Hepatitis C History of drug use Tobacco use Home Medications fluconazole [Diflucan] 150 mg PO Q3D #2 tab 01/23/21 [Rx Last Taken Unknown] glecaprevir-pibrentasvir [Mavyret] 1 tab PO DAILY 01/23/21 [History Last Taken Unknown] ibuprofen 600 mg PO Q8H PRN PRN #20 tablet 01/23/21 [Rx Last Taken Unknown] penicillin V potassium 500 mg PO 4X/DAY #40 tab 01/23/21 [Rx Last Taken Unknown] Allergy/AdvReac Type Severity Reaction Status Date / Time fentanyl Allergy PT UNSURE Verified 01/23/21 12:17 OF REACTION morphine AdvReac Rash Verified 01/23/21 12:17 Surgical History History of delivery Social History (Updated 01/23/21 @ 12:[address] Galileo Villalobos DO) Smoking Status: Current every day smoker tobacco type: cigarettes substance use type: does not use ROS ROS ED Constitutional Constitutional ED: Denies chills, fever(s) or weight loss Eyes Eyes: Denies change in vision or diplopia ENT ENT ED: Reports other Details: Dental pain and facial swelling ; Denies ear pain, rhinorrhea or sore throat Cardiovascular Cardiovascular: Denies chest pain, orthopnea, palpitations or racing heartbeat Respiratory/Chest Respiratory/Chest: Denies cough, dyspnea or orthopnea Gastrointestinal Gastrointestinal: Denies abdominal pain, diarrhea, nausea or vomiting Genitourinary Genitourinary ED: Denies dysuria, hematuria or urinary frequency Musculoskeletal Musculoskeletal: Denies arthralgias or myalgias Integumentary Denies abscess or rash Neurologic Neurologic: Denies headache(s) or weakness Psychiatric Psychiatric: Denies anxiety, depression, suicidal ideation or suicidal thoughts Endocrine Endocrinology: Denies polydipsia, polyphagia or polyuria Allergic/Immunologic Allergic/Immunologic ED: Denies mouth swelling, tongue swelling or urticaria EXAM Physical Exam Const Vital Signs: 01/23/21 12:15 Temperature 97.5 F L Temperature Source Temporal Pulse Rate 103 H Respiratory Rate 16 Blood Pressure 152/102 H Blood Pressure Mean 118 Pulse Ox 98 Oxygen Delivery Method Room Air Positive well nourished and well developed General Appearance ED: well developed HEENT Reports normocephalic, head/scalp atraumatic and moist mucous membranes HEENT Narrative: There is no trismus. Tenderness of the left upper premolar tenderness with associated gumline. There is swelling of the left maxillary area sinus region. No significant erythema noted no drainable abscess at this time Mouth ED: Yes lips normal and Yes tongue normal Mouth: lips normal and tongue normal Throat: posterior oropharynx normal Eyes PERRL and EOMs intact bilaterally Neck no lymphadenopathy, supple and no JVD Resp normal respiratory effort and clear to auscultation bilaterally Cardio regular rate, regular rhythm and no murmurs GI normal to inspection, nondistended, normoactive bowel sounds and non-tender Palpation: soft Back/Spine no CVA tenderness and normal ROM Extremity normal to inspection General Extremety ED: Negative for edema General Extremity: Negative for edema Neuro oriented x3 and CN's II-XII intact bilaterally Sensorium / Orientation: alert Motor Exam: strength 5/5 throughout Psych mental status grossly normal Mood & Affect: Negative for depressed or tearful Skin no rashes or lesions noted and no wounds MDM MDM MDM Narrative Medical decision making narrative: Patient will be started on penicillin and ibuprofen. She requests Diflucan. She should follow up dentistry soon as possible Discharge Plan Triage Chief Complaint: Dental ED Provider: Galileo Villalobos Dx/Rx/DC Orders Clinical Impression: Periapical abscess Instructions: Dental Abscess Prescriptions: New ibuprofen 600 MG tablet 600 mg PO Q8H PRN PRN (Reason: pain) Qty: 20 RF: 0 penicillin V potassium 500 MG tablet 500 mg PO 4X/DAY Qty: 40 RF: 0 fluconazole [Diflucan] 150 mg tablet 150 mg PO Q3D Qty: 2 RF: 0 No Action Mavyret 100-40 mg tablet 1 tab PO DAILY RF: 0 Primary Care Provider: [facility] Meg Trujillo Referrals: [facility] Meg Trujillo [Primary Care Provider] - As soon as possible Disposition Disposition: Home, Self Care
[2021-01-23 12:43] VITALS: RESP 15
== END 2021-01-23 12:43 | disposition home or self-care (01) ==
LOC: ED 12:36
PROVIDERS: Emergency Provider Emergency Medicine
DX: K04.7 Periapical abscess without sinus (principal); F17.210 Nicotine dependence, cigarettes, uncomplicated
CPT/HCPCS: 99282

== ENCOUNTER 2021-02-06 12:38 | Emergency (ER) | payer MEDICAID, SELFPAY ==
[2021-02-06 12:39] VITALS: BP 126/95; PULSE 102; RESP 15; TEMP 36; O2SAT 97; BMI 27.8
--- NOTE | 2021-02-06 12:58 | EDS_ITS ---
HPI History of Present Illness Chief Complaint: Dental Informant: patient Narrative Narrative: Very pleasant 31-year-old female presents to the emergency department with swelling along the right upper gumline. She was recently treated for a periapical abscess on the left upper side. Now she presents on the right side. States symptoms started after she finished the penicillin that she was on. She has an appointment on 09 February with her dentist. PFSH PFSH Medical History Chronic hepatitis Hepatitis C History of drug use Tobacco use Home Medications fluconazole [Diflucan] 150 mg PO Q3D #2 tab 01/23/21 [Rx Last Taken Unknown] glecaprevir-pibrentasvir [Mavyret] 1 tab PO DAILY 01/23/21 [History Last Taken Unknown] ibuprofen 600 mg PO Q8H PRN PRN #20 tablet 01/23/21 [Rx Last Taken Unknown] penicillin V potassium 500 mg PO 4X/DAY #40 tab 01/23/21 [Rx Last Taken Unknown] clindamycin HCl [Cleocin HCl] 300 mg PO Q6H #40 capsule 02/06/21 [Rx Last Taken Unknown] fluconazole 150 mg PO Q3D #2 tab 02/06/21 [Rx Last Taken Unknown] Allergy/AdvReac Type Severity Reaction Status Date / Time fentanyl Allergy PT UNSURE Verified 02/06/21 12:39 OF REACTION morphine AdvReac Rash Verified 02/06/21 12:39 Surgical History History of delivery Social History Smoking Status: Current every day smoker tobacco type: cigarettes substance use type: does not use ROS ROS ED Constitutional Constitutional ED: Denies chills, fever(s) or weight loss Eyes Eyes: Denies change in vision or diplopia ENT ENT ED: Reports other Details: See HPI ; Denies ear pain, rhinorrhea or sore throat Cardiovascular Cardiovascular: Denies chest pain, orthopnea, palpitations or racing heartbeat Respiratory/Chest Respiratory/Chest: Denies cough, dyspnea or orthopnea Gastrointestinal Gastrointestinal: Denies abdominal pain, diarrhea, nausea or vomiting Genitourinary Genitourinary ED: Denies dysuria, hematuria or urinary frequency Musculoskeletal Musculoskeletal: Denies arthralgias or myalgias Integumentary Denies abscess or rash Neurologic Neurologic: Denies headache(s) or weakness Psychiatric Psychiatric: Denies anxiety, depression, suicidal ideation or suicidal thoughts Endocrine Endocrinology: Denies polydipsia, polyphagia or polyuria Allergic/Immunologic Allergic/Immunologic ED: Denies mouth swelling, tongue swelling or urticaria EXAM Physical Exam Const Vital Signs: 02/06/21 12:39 Temperature 96.8 F L Temperature Source Temporal Pulse Rate 102 H Respiratory Rate 15 Blood Pressure 126/95 H Blood Pressure Mean 105 Pulse Ox 97 Oxygen Delivery Method Room Air Positive well nourished and well developed General Appearance ED: well developed HEENT Reports normocephalic, head/scalp atraumatic and moist mucous membranes HEENT Narrative: There is some mild swelling without erythema of the right maxillary region. She has swelling along the gumline of the right upper canine/premolars. Mild tenderness on percussion of teeth. There is no fluctuance. Negative for trauma Eyes PERRL and EOMs intact bilaterally Neck no lymphadenopathy, supple and no JVD Resp normal respiratory effort and clear to auscultation bilaterally Cardio regular rate, regular rhythm and no murmurs GI normal to inspection, nondistended, normoactive bowel sounds and non-tender Palpation: soft Back/Spine no CVA tenderness and normal ROM Extremity normal to inspection General Extremety ED: Negative for edema General Extremity: Negative for edema Neuro oriented x3 and CN's II-XII intact bilaterally Sensorium / Orientation: alert Motor Exam: strength 5/5 throughout Psych mental status grossly normal Mood & Affect: Negative for depressed or tearful Skin no rashes or lesions noted and no wounds MDM MDM MDM Narrative Medical decision making narrative: Patient was previously on penicillin so we will change to clindamycin. I will also write for some fluconazole. Discharge Plan Triage Chief Complaint: Dental ED Provider: Galileo Villalobos Dx/Rx/DC Orders Clinical Impression: Periapical abscess Instructions: ED Dental Abscess Prescriptions: New fluconazole 150 mg tablet 150 mg PO Q3D Qty: 2 RF: 0 clindamycin HCl [Cleocin HCl] 300 MG capsule 300 mg PO Q6H Qty: 40 RF: 0 No Action Mavyret 100-40 mg tablet 1 tab PO DAILY RF: 0 ibuprofen 600 MG tablet 600 mg PO Q8H PRN PRN (Reason: pain) Qty: 20 RF: 0 penicillin V potassium 500 MG tablet 500 mg PO 4X/DAY Qty: 40 RF: 0 fluconazole [Diflucan] 150 mg tablet 150 mg PO Q3D Qty: 2 RF: 0 Primary Care Provider: Medical Meg Trujillo Referrals: [facility] Ronnie,Meg Salinas [Primary Care Provider] - [facility] appointment Disposition Disposition: Home, Self Care
[2021-02-06 13:12] VITALS: RESP 15
== END 2021-02-06 13:14 | disposition home or self-care (01) ==
PROVIDERS: Emergency Provider Emergency Medicine
DX: K04.7 Periapical abscess without sinus (principal); B18.2 Chronic viral hepatitis C; F17.210 Nicotine dependence, cigarettes, uncomplicated; Z79.899 Other long term (current) drug therapy
CPT/HCPCS: 99282

== ENCOUNTER → 2021-02-09 09:28 | Outpatient (CLI) | payer MEDICAID, SELFPAY ==
[2021-02-09 09:56] LABS: Absolute Lymphocyte Count 1.79 X10^3/uL (0.83-4.51); Absolute Neutrophil Count 2.2 X10^3/uL (2.0-7.7); Basophil# 0.03 X10^3/uL; Basophil% 0.7 % (0-1); Eosinophil# 0.25 X10^3/uL; Eosinophils% 5.6 % (0-5); Hematocrit 39.4 % (37-47); Hemoglobin 13.5 g/dL (12.0-15.0); Lymphocyte # 1.79 X10^3/ul (0.83-4.51); Lymphocyte % 39.8 % (19-41); Mean Corp Hgb Conc 34.3 g/dL (32-36); Mean Corpuscular Hgb 32.8 pg (27.0-32.0); Mean Corpuscular Volume 95.6 fL (81-99); Monocyte# 0.26 X10^3/uL; Monocyte% 5.8 % (0-10); NRBC Flagged by Analyzer 0 % (0-5); Neutrophil # 2.16 X10^3/uL (2.7-7.7); Neutrophil % 47.9 % (47-70); Platelet Count 296 K/mm3 (150-450); RBC Distribution Width CV 11.6 % (11.6-14.6); RBC Distribution Width SD 40.4 fl (35.1-43.9); Red Blood Count 4.12 M/mm3 (4.2-5.4); White Blood Count 4.5 K/mm3 (4.4-11.0)
[2021-02-09 10:51] LABS: AST(SGOT) 14 U/L (15-37); Alanine Aminotransfer ALT/SGPT 19 U/L (13-56); Albumin, Serum 3.7 g/dL (3.2-5.0); Alkaline Phosphatase 72 U/L (45-117); Anion Gap 5 (5-15); BUN 7 mg/dL (7-18); BUN/Creat Ratio 8.4 RATIO (10-20); Calcium,Total 8.8 mg/dL (8.5-10.1); Chloride 107 mmol/L (98-107); Creatinine, Serum 0.83 mg/dL (0.55-1.02); EST Glomerular Filtration Rate 85 mL/min (>60); Est Glom Filt Rate - Afr Amer 103 mL/min (>60); Globulin 3.7 g/dL (2.2-4.2); Glucose 87 mg/dL (74-106); Potassium 3.8 mmol/L (3.5-5.1); Protein, Total 7.4 g/dL (6.4-8.2); Sodium Level 138 mmol/L (136-145)
[2021-02-10 20:08] LABS: HCV Quant. RNA PCR HCV Not Detected IU/mL (.)
== END ==
PROVIDERS: Referring Provider Internal Medicine Infectious Disease; Visit Provider Internal Medicine Infectious Disease
DX: B18.2 Chronic viral hepatitis C (principal)
CPT/HCPCS: 36415; 80053; 85025; 87522